=== PATIENT | female | born 1960 | race Caucasian/White ===

== ENCOUNTER 2017-06-08 05:31 | Emergency (ER) | payer OTHER ==
[~2017-06-08] VITALS: Ht 165.1 cm; Wt 84.8 kg
[2017-06-08 05:39] VITALS: Ht 165.1 cm; Wt 84.8 kg
[2017-06-08 07:44] VITALS: BP 119/58
== END 2017-06-08 07:44 | disposition home or self-care (01) ==
LOC: ED 05:31
DX: J10.1 Influenza due to other identified influenza virus with other respiratory manifestations (principal); J98.01 Acute bronchospasm; I10 Essential (primary) hypertension; H92.09 Otalgia, unspecified ear
CPT/HCPCS: 87804; J1885; J7613; J7644; Q0162